=== PATIENT | male | born 1985 | race Caucasian/White ===

== ENCOUNTER 2017-02-25 19:14 | Emergency (ER) | payer OTHER ==
[2017-02-25 19:22] VITALS: BP 171/108; PULSE 114; TEMP 99.8; BMI 28.1
--- NOTE | 2017-02-25 19:30 | PDOC ---
History of Present Illness - General History Source: Patient Exam Limitations: No Limitations - History of Present Illness Initial Comments: 02/25/17 19:38 The patient is a 31 year old male with no significant past medical history, who presents to the ED with a fever, 1x diarrhea, generalized body aches, and lightheadedness that began this morning. Patient had a 102.6 fever this morning. Patient last had 3 extra strength Tylenol around 2 and a half hours prior to arrival. Patient denies headache, cough, sore throat, ear pain, chills, nausea, vomiting , hematochezia. He denies dysuria, frequency, hematochezia. Patient denies recent travels, sick contacts. PAST MEDICAL HISTORY: no significant history PAST SURGICAL HISTORY: no significant history FAMILY HISTORY: no pertinent history SOCIAL HISTORY: Pt lives with family and is employed. MEDICATIONS: reviewed ALLERGIES: As per nursing notes ROS General: + fever. + generalized body aches. No chill, no weight loss HEENT: No change in vision. No sore throat,. No ear pain CardioVascular: No chest pain or shortness of breath Respiratory:No cough, or wheezing. Gastrointestinal: + diarrhea. no nausea, vomiting, or constipation, No rectal bleeding Genitourinary: No dysuria, hematuria, or frequency Musculoskeletal: No joint or muscle pain or swelling Neurologic: + lightheadedness. No headache, vertigo, or loss of consciousness Psychiatric: nor depression Skin: No rashes or easy bruising Endocrine: no increased thirst or abnormal weight change Allergic: no skin or latex allergy All other systems reviewed and normal Exam: General: Well-nourished well-developed individual, no acute distress HEENT: Throat: Normal, tonsils normal, no erythema or exudate Neck: Supple, no meningeal signs, no lymphadenopathy Eyes:Pupils equal reactive and round, extraocular motion intact Chest: Nontender to palpation Cardiac: S1-S2 normal, regular rate and rhythm, no murmurs rubs or gallops Respiratory: Lungs clear to auscultation bilateral Abdomen: Soft, nondistended, normal bowel sounds, nontender to palpation diffusely Extremities: Warm, dry, no cyanosis, clubbing, or edema Skin: No rashes Neuro: Alert and oriented x3, nonfocal exam, grossly intact, normal gait Psych: Normal mood and affect <Rupert Kruger - Last Filed: 02/25/17 19:38> - General History Source: Patient Exam Limitations: No Limitations - History of Present Illness Initial Comments: 02/25/17 19:47 A portion of this note was documented by scribe services under my direction. I have reviewed the details of the note, within reason, and agree with the documentation. The case summary and management plan written by me. Assessment and plan: This is a 31-year-old male who comes in complaining of fever, body aches and no other symptoms. Patient has had symptoms for less than 24 hours. Patient took Tylenol prior to coming in and fever was 99.8 here in the emergency room. Patient otherwise had a normal exam. Patient denies any recent travel and any risk factors for tick bites. Patient was given Toradol here in the emergency room and reassured that this is most likely viral however was instructed that if the fever persists for more than 48 hours with no other symptoms that he should be reevaluated. <Kelvin Angulo I - Last Filed: 02/25/17 19:48> - General Chief Complaint: Pain, Acute Stated Complaint: FEVER/ BODY ACHES Time Seen by Provider: 02/25/17 19:22 Past History <Rupert Kruger - Last Filed: 02/25/17 19:38> - Past Medical History Suicide Attempt (Hx): No Other medical history: DENIES - Immunization History Immunization Up to Date: No - Psycho/Social/Smoking Cessation Hx Anxiety: No Suicidal Ideation: No Smoking History: Current every day smoker Have you smoked in the past 12 months: Yes Number of Cigarettes Smoked Daily: 10 Information on smoking cessation initiated: Yes 'Breaking Loose' booklet given: 02/25/17 Hx Alcohol Use: No Drug/Substance Use Hx: No Substance Use Type: Opiates <Kelvin Angulo I - Last Filed: 02/25/17 19:48> - Past Medical History Allergies/Adverse Reactions: Allergies Allergy/AdvReac Type Severity Reaction Status Date / Time No Known Allergies Allergy Verified 02/25/17 19:16 Home Medications: Ambulatory Orders NK [No Known Home Medication] 03/03/15 *Physical Exam - Vital Signs Last Vital Signs Temp Pulse Resp BP Pulse Ox 99.8 F H 114 H 16 171/108 98 02/25/17 19:18 02/25/17 19:18 02/25/17 19:18 02/25/17 19:18 02/25/17 19:18 <Rupert Kruger - Last Filed: 02/25/17 19:38> - Vital Signs Last Vital Signs Temp Pulse Resp BP Pulse Ox 99.8 F H 114 H 16 171/108 98 02/25/17 19:18 02/25/17 19:18 02/25/17 19:18 02/25/17 19:18 02/25/17 19:18 <Kelvin Angulo I - Last Filed: 02/25/17 19:48> *DC/Admit/Observation/Transfer - Attestations Scribe Attestion: 02/25/17 19:38 Documentation prepared by Rupert Kruger, acting as biomedical technician for Kelvin Angulo MD. <Rupert Kruger - Last Filed: 02/25/17 19:38> - Discharge Dispostion Admit: No <Kelvin Angulo I - Last Filed: 02/25/17 19:48> Diagnosis at time of Disposition: Viral illness Fever Qualifiers: Fever type: unspecified Qualified Code(s): R50.9 - Fever, unspecified - Discharge Dispostion Disposition: HOME Condition at time of disposition: Stable - Patient Instructions Additional Instructions: Alternate acetaminophen 2 tablets with ibuprofen 2 tablets every 3 hours for the next 24 hours to control the fever. After that you get*skipping a dose of either the ibuprofen or the acetaminophen to see if the fever is getting better. If you still have a fever in 3 days and no other symptoms he should be reevaluated either by your primary care doctor or return to the emergency room. Return to the emergency department immediately with ANY new, persistent or worsening symptoms. Continue any medications as previously prescribed by your physician. . Please make sure your doctor reviews the results of your emergency evaluation. Thank you for coming to the Emergency Department today for your care. It was a pleasure to see you today. Please note that your evaluation is INCOMPLETE until you follow-up with your doctor.
[2017-02-25] MEDS ORDERED: KETOROLAC TROMETHAMINE 60 MG/2 ML VIAL ONE (19:38)
[2017-02-25] MEDS ORDERED: KETOROLAC TROMETHAMINE 60 MG/2 ML VIAL IM ONE (19:38)
== END 2017-02-25 19:45 | disposition home or self-care (01) ==
LOC: FER 19:14
PROC: 3E0233Z Introduction of Anti-inflammatory into Muscle, Percutaneous Approach (ICD-10-PCS; principal; 2017-02-25)
DX: B34.9 Viral infection, unspecified (principal); R50.9 Fever, unspecified
CPT/HCPCS: 99281-25

== ENCOUNTER 2017-04-18 22:33 | Emergency (ER) | payer OTHER ==
--- NOTE | 2017-04-18 22:35 | PDOC ---
History of Present Illness - General Chief Complaint: Injury Stated Complaint: LT WRIST PAIN Time Seen by Provider: 04/18/17 22:35 History Source: Patient - History of Present Illness Initial Comments: 04/18/17 22:48 Pt presents to the ED complaining of a one month history of atraumatic L wrist pain. States that the pain began after "sleeping on it wrong" a month ago and has been persistent since then. Patient denies acute changes in his symptoms, but presents today because he has pain in his wrist when he tries to lift heavy objects and his work involves heavy lifting. Patient has not sought medical care for this problem. Pain is constant and 10/10 in severity as per the patient. 04/18/17 22:50 Past History - Past Medical History Allergies/Adverse Reactions: Allergies Allergy/AdvReac Type Severity Reaction Status Date / Time No Known Allergies Allergy Verified 02/25/17 19:16 Home Medications: Ambulatory Orders NK [No Known Home Medication] 03/03/15 - Immunization History Immunization Up to Date: No - Suicide/Smoking/Psychosocial Hx Smoking History: Current every day smoker Have you smoked in the past 12 months: Yes Number of Cigarettes Smoked Daily: 10 'Breaking Loose' booklet given: 02/25/17 Hx Alcohol Use: No Drug/Substance Use Hx: No Substance Use Type: Opiates Review of Systems - Review of Systems Able to Perform ROS?: Yes Is the patient limited Croatian proficient: No Constitutional: No: Symptoms Reported, See HPI, Chills, Diaphoresis, Fever, Loss of Appetite, Malaise, Night Sweats, Weakness, Weight Stable, Unintentional Wgt. Loss, Unexplained wgt Loss, Other Musculoskeletal: Yes: See HPI. No: Symptoms Reported, Back Pain, Gout, Joint Pain, Joint Swelling, Muscle Pain, Muscle Weakness, Neck Pain, Joint Stiffness, Other *Physical Exam - Physical Exam General Appearance: No: Nourished, Appropriately Dressed, Apparent Distress, Disheveled, Mild Distress, Moderate Distress, Severe Distress, Alcohol on Breath , Intoxicated, Cachetic, Obese, Thin, Other Extremity: positive: Normal Capillary Refill, Normal Inspection, Normal Range of Motion (L wrist has no tenderness or deformity. full ROM. Good optical element coater strength. ) Medical Decision Making - Medical Decision Making 04/18/17 22:52 Pt presents to the ED complaining of a month long history of L wrist pain. Patient is convinced that his wrist is fractured despite absence of trauma. Will check xray to rule out osteoscarcoma or other pathologic fracture which are unlikely given normal exam. 04/19/17 00:21 patient is hypertensive but asymptomatic. Will give urgent medical referral. *DC/Admit/Observation/Transfer Diagnosis at time of Disposition: Hypertension Qualifiers: Hypertension type: essential hypertension Qualified Code(s): I10 - Essential ( primary) hypertension; I10 - Essential (primary) hypertension; I10 - Essential ( primary) hypertension Strain of wrist Qualifiers: Encounter type: initial encounter Laterality: left Qualified Code(s): S66.912A - Strain of unspecified muscle, fascia and tendon at wrist and hand level, left hand, initial encounter; S66.912A - Strain of unspecified muscle, fascia and tendon at wrist and hand level, left hand, initial encounter - Discharge Dispostion Disposition: HOME Condition at time of disposition: Good Admit: No - Referrals Referrals: Nannette López MD [Staff Physician] - Vazquez Mena MD [Staff Physician] - - Patient Instructions Printed Discharge Instructions: DI for Wrist Pain Additional Instructions: Your blood pressure is high. You need to seek treatment by a primary care doctor urgently to avoid the risk of heart attack, blindness, kidney failure and stroke. I have prescribed a medication for your blood pressure, but you must still urgently seek treatment from a primary care doctor.
[2017-04-18 23:10] VITALS: PULSE 90; TEMP 97.9; BMI 28.1
[2017-04-18] MEDS ORDERED: IBUPROFEN 400 MG TABLET (FP) PO ONE ×2 (23:34→23:37)
[2017-04-18 23:41] VITALS: BP 183/146
== END 2017-04-19 00:31 | disposition home or self-care (01) ==
LOC: FER 22:33
DX: S66.912A Strain of unspecified muscle, fascia and tendon at wrist and hand level, left hand, initial encounter (principal); X58.XXXA Exposure to other specified factors, initial encounter; Y93.89 Activity, other specified; Y92.9 Unspecified place or not applicable; I10 Essential (primary) hypertension
CPT/HCPCS: 73110-TC-LT; 73130-TC-LT; 99281-25

== ENCOUNTER 2017-04-29 04:09 | Emergency (ER) | payer OTHER ==
[2017-04-29 04:22] VITALS: BP 150/113; PULSE 98; TEMP 98.4; BMI 26.6
--- NOTE | 2017-04-29 04:26 | PDOC ---
History of Present Illness - General Stated Complaint: left side face numbness Time Seen by Provider: 04/29/17 04:18 History Source: Patient Exam Limitations: No Limitations - History of Present Illness Initial Comments: 04/29/17 04:22 This is a 32-year-old male who has history of hypertension and was recently started on medication for hypertension and comes in with complaining of pain over the left TMJ area. Patient denies history of similar pain in the past. Patient said it woke him up he took 4 ibuprofen and admitted for evaluation. Here in the emergency room his blood pressure is better is 156 systolic. Patient denies any numbness or weakness on that side of the face. Patient denies any headache, change in vision, neck stiffness. Patient said that he has been under a lot of stress recently. PAST MEDICAL HISTORY: no significant history PAST SURGICAL HISTORY: no significant history FAMILY HISTORY: no pertinant history SOCIAL HISTORY: Pt lives with family and is employed. MEDICATIONS: reviewed ALLERGIES: As per nursing notes Review of Systems General: No fevers or chills, no weakness, no weight loss HEENT: No change in vision. No sore throat,. No ear pain, left-sided facial pain CardioVascular: No chest pain or shortness of breath Respiratory:No cough, or wheezing. Gastrointestinal: no nausea, vomitting, diarrhea or constipation, No rectal bleeding Genitourinary: No dysuria, hematuria, or frequency Musculoskeletal: No joint or muscle pain or swelling Neurologic: No headache, vertigo, dizziness or loss of consciousness Psychiatric: nor depression Skin: No rashes or easy bruising Endocrine: no increased thirst or abnormal weight change Allergic: no skin or latex allergy All other systems reviewed and normal Exam: General: Well-nourished well-developed individual, no acute distress HEENT: Throat: Normal, tonsils normal, no erythema or exudate, pain is reproduced with palpation over the left TMJ Neck: Supple, no meningeal signs, no lymphadenopathy Eyes::Pupils equal reactive and round, extraocular motion intact Chest: Nontender to palpation Cardiac: S1-S2 normal, regular rate and rhythm, no murmurs rubs or gallops Respiratory: Lungs clear to auscultation bilateral Abdomen: Soft, nondistended, normal bowel sounds, nontender to palpation diffusely Extremities: Warm, dry, no cyanosis, clubbing, or edema Skin: No rashes Neuro: Alert and oriented x3, nonfocal exam, grossly intact, normal gait Psych: Normal mood and affect This is a 32-year-old male with left facial pain over the left TMJ area. Patient took it on milligrams of ibuprofen just prior to coming in and is just starting to work now. Otherwise I would've given patient 60 mg of Toradol. 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 Told patient to follow-up with his dentist today if symptoms persisted and patient discharged home. Past History - Past Medical History Allergies/Adverse Reactions: Allergies Allergy/AdvReac Type Severity Reaction Status Date / Time No Known Allergies Allergy Verified 02/25/17 19:16 Home Medications: Ambulatory Orders Amlodipine Besylate [Norvasc -] 10 mg PO DAILY #30 tablet 04/19/17 - Immunization History Immunization Up to Date: No - Suicide/Smoking/Psychosocial Hx Smoking History: Current every day smoker Have you smoked in the past 12 months: Yes Number of Cigarettes Smoked Daily: 10 'Breaking Loose' booklet given: 02/25/17 Hx Alcohol Use: No Drug/Substance Use Hx: No Substance Use Type: Opiates *DC/Admit/Observation/Transfer Diagnosis at time of Disposition: Sprain of left temporomandibular joint Qualifiers: Encounter type: initial encounter Qualified Code(s): S03.42XA - Sprain of jaw, left side, initial encounter; S03.42XA - Sprain of jaw, left side, initial encounter - Discharge Dispostion Disposition: HOME Condition at time of disposition: Stable Admit: No - Patient Instructions Additional Instructions: For the pain you can take Aleve 2 tablets twice a day with food don't take on an empty stomach Otherwise continue any medication for high blood pressure. Return to the emergency department immediately with ANY new, persistent or worsening symptoms. Continue any medications as previously prescribed by your physician. You should follow up with your Dentist as soon as possible regarding today's emergency department visit. . Please make sure your doctor reviews the results of your emergency evaluation. Thank you for coming to the Emergency Department today for your care. It was a pleasure to see you today. Please note that your evaluation is INCOMPLETE until you follow-up with your doctor.
== END 2017-04-29 04:33 | disposition home or self-care (01) ==
LOC: FER 04:09
DX: S03.42XA Sprain of jaw, left side, initial encounter (principal); I10 Essential (primary) hypertension; F17.210 Nicotine dependence, cigarettes, uncomplicated; X58.XXXA Exposure to other specified factors, initial encounter; Y93.89 Activity, other specified; Y92.9 Unspecified place or not applicable
CPT/HCPCS: 99281-25

== ENCOUNTER 2020-04-26 16:29 | Emergency (ER) | payer OTHER ==
[2020-04-26 16:42] VITALS: PULSE 70; TEMP 98.5; BMI 27.8
--- NOTE | 2020-04-26 16:47 | PDOC ---
Rapid Medical Evaluation Chief Complaint: Blood Pressure Problem Time Seen by Provider: 04/26/20 16:43 Medical Evaluation: Allergies Allergy/AdvReac Type Severity Reaction Status Date / Time No Known Allergies Allergy Verified 04/26/20 16:37 Vital Signs Temp Pulse Resp BP Pulse Ox 98.5 F 70 18 193/140 H 100 04/26/20 16:38 04/26/20 16:38 04/26/20 16:38 04/26/20 16:38 04/26/20 16:38 04/26/20 16:44 35 year old male pmhx of HTN on duel therapy presenting from PCP for HTN urgency. 210/100 complaining of imtermittent SILVA and blurry vision. Denies CP SOB PE: CTA RRR Plan: EKG CXR CT head Lads Pt to precede to ED for further eval
[2020-04-26] MEDS ORDERED: NITROGLYCERIN SUBLINGUAL 1/150 0.4 MG TAB SL ONE (17:03)
--- OUTSIDE RECORDS SUMMARY | 2020-04-26 17:07 | XMS ---
:1985 Author Organization [facility] Support Name Relationship Address Phone UE Unavailable Unavailable Unavailable ADDY MCKAYLA SIGNIFICANT OTHER [address] [place] [address] BREA BURGER MOTHER [address] [place] [address] [place] [address] Re-disclosure Warning The records that you are about to access may contain information from federally- assisted alcohol or drug abuse programs. If such information is present, then the following federally mandated warning applies: This information has been disclosed to you from records protected by federal confidentiality rules (42 CFR part 2). The federal rules prohibit you from making any further disclosure of this information unless further disclosure is expressly permitted by the written consent of the person to whom it pertains or as otherwise permitted by 42 CFR part 2. A general authorization for the release of medical or other information is NOT sufficient for this purpose. The Federal rules restrict any use of the information to criminally investigate or prosecute any alcohol or drug abuse patient.The records that you are about to access may contain highly sensitive health information, the redisclosure of which is protected by Article 27-F of the [facility] Public Health law. If you continue you may haveaccess to information: Regarding HIV / AIDS; Provided by facilities licensed or operated by the [facility] Office of Mental Health; or Provided by the [facility] Office for People With Developmental Disabilities. If such information is present, then the following [facility] mandated warning applies: This information has been disclosed to you from confidential records which are protected by state law. State law prohibits you from making any further disclosure of this information without the specific written consent of the person to whom it pertains, or as otherwise permitted by law. Any unauthorized further disclosure in violation of state law may result in a fine or long term sentence or both. A general authorization for the release of medical or other information is NOT sufficient authorization for further disclosure. Insurance Providers Payer name Policy type Policy ID Covered Covered democrat's Policy P clive / Coverage democrat ID relationship to [facility] ormation type [facility] [id number] MEDICAID COMM PLAN Results ID Date Data Source [id number] 03/21/2020 05:04:00 PM EDT [facility] Name Value Range Interpretation Description Data Sup porting Code Source(s) Document(s ) SARS CoV-2 [facility] Interpretation This lab was ordered by [facility] and reported by [facility]. ID Date Data Source [id number] 03/21/2020 05:04:00 PM EDT [facility] Name Value Range Interpretation Code Description Data Melanie rce(s) Supporting Document(s ) 2019-nCoV [facility] RNA XXX CAR[place]+probe- Imp This lab was ordered by [facility] and reported by [facility]. Procedure
[2020-04-26] MEDS ORDERED: NITROGLYCERIN SUBLINGUAL 1/150 0.4 MG TAB ONE (17:34)
--- NOTE | 2020-04-26 17:59 | PDOC ---
History of Present Illness - General Chief Complaint: Blood Pressure Problem Stated Complaint: SENT BY PCP Time Seen by Provider: 04/26/20 16:43 - History of Present Illness Initial Comments: 04/26/20 17:48 35yo M with a PMHx HTN and headaches sent here by Dr. Alvarado from her office after pt reported a SILVA and dizziness at his first visit with her. His SBP was >200mmHg on both arms. He presents here reporting a 1/10 SILVA. He endorses intermittent severe SILVA that feel like "I got hit by a lightning bolt." He denies tinnitus, vision changes, and dark or bloody urine. He endorses palpitations and back pain at times. Denies fevers, rashes, recent illnesses. Past History - Medical History Allergies/Adverse Reactions: Allergies Allergy/AdvReac Type Severity Reaction Status Date / Time No Known Allergies Allergy Verified 04/26/20 16:37 Home Medications: Ambulatory Orders Amlodipine Besylate [Norvasc -] 10 mg PO DAILY #30 tablet 04/19/17 COPD: No HTN: Yes - Immunization History Immunization Up to Date: No - Psycho-Social/Smoking History Smoking History: Current every day smoker Have you smoked in the past 12 months: Yes Number of Cigarettes Smoked Daily: 20 If you are a former smoker, when did you quit?: 2 WEEKS AGO Information on smoking cessation initiated: Yes 'Breaking Loose' booklet given: 02/25/17 - Substance Abuse Hx (Audit-C & DAST Scrn) How often the patient has a drink containing alcohol: Never Score: In Men: 4 or > Positive; In Women: 3 or > Positive: 0 Screen Result (Pos requires Nsg. Audit-10AR): Negative In the last yr the pt used illegal drug/Rx for NonMed reason: Yes Score: Yes response is considered Positive: 1 Screen Result (Positive result requires Nsg. DAST-10): Positive Review of Systems - Review of Systems Able to Perform ROS?: Yes Is the patient limited Greenlandic proficient: No Constitutional: No: Chills, Diaphoresis, Fever HEENTM: No: Blurred Vision, Recent change in vision Respiratory: Yes: SOB with Exertion. No: Cough, Shortness of Breath, Wheezing Cardiac (ROS): Yes: Edema, Palpitations. No: Chest Pain, Chest Tightness ABD/GI: No: Constipated, Diarrhea, Nausea, Vomiting : No: Burning, Dysuria, Flank Pain, Hematuria Musculoskeletal: Yes: Back Pain. No: Muscle Weakness Integumentary: Yes: Symptoms Reported. No: Rash Neurological: Yes: Headache, Dizziness. No: Numbness, Paresthesia, Tingling, Weakness Psychiatric: Yes: Anxiety Endocrine: No: Symptoms Reported Hematologic/Lymphatic: No: Symptoms Reported All Other Systems: Reviewed and Negative *Physical Exam - Vital Signs Last Vital Signs Temp Pulse Resp BP Pulse Ox 98.5 F 70 18 193/140 H 100 04/26/20 16:38 04/26/20 16:38 04/26/20 16:38 04/26/20 16:38 04/26/20 16:38 - Physical Exam General Appearance: Yes: Nourished, Appropriately Dressed. No: Apparent Distress, Disheveled HEENT: positive: EOMI, SIOBHAN, Normal ENT Inspection, Normal Voice Neck: positive: Trachea midline, Supple. negative: Carotid bruit Cardiovascular: positive: Regular Rhythm, Regular Rate, S1, S2. negative: Gallop/S3, Gallop/S4 Gastrointestinal/Abdominal: positive: Normal Bowel Sounds, Soft Musculoskeletal: positive: Normal Inspection. negative: CVA Tenderness Extremity: positive: Normal Capillary Refill, Normal Inspection, Normal Range of Motion Integumentary: positive: Normal Color, Dry, Warm Neurologic: positive: cattle brander II-XII NML intact, Fully Oriented, Alert, Normal Mood/Affect, Normal Response, Motor Strength 5/5 ED Treatment Course - LABORATORY CBC & Chemistry Diagram: 04/26/20 17:38 04/26/20 17:38 Medical Decision Making - Medical Decision Making 04/26/20 18:01 35yo M w/ HTN sent here by PCP for SILVA and dizziness, now asymptomatic. CVA/bleed/TIA: normal neuro exam but mild SILVA labs = wnl CT scan = ? CXR = ? 04/26/20 19:16 Dr. Sweeney sent: to [address] Trazodone - 50mg daily x30d Carvedilol - 6.25mg daily x30d 04/26/20 19:20 04/26/20 20:16 CT negative. Carvedilol 1st dose given. BP now 160s/120s, down from 200s SBP. Will DC. Discharge - Discharge Information Problems reviewed: Yes Clinical Impression/Diagnosis: Hypertension Qualifiers: Hypertension type: unspecified Qualified Code(s): I10 - Essential (primary) hypertension Condition: Stable Disposition: HOME - Admission No - Follow up/Referral Referrals: Korey Alvarado MD [Primary Care Provider] - - Patient Discharge Instructions Patient Printed Discharge Instructions: DI for High Blood Pressure, How to Monitor Your Blood Pressure at Home Additional Instructions: You were seen in the ED for high blood pressure and a headache. We tested your blood, took an Xray and a CT scan, and we did a full physical e xam. We deemed you safe for discharge. Please follow up with Dr. Sweeney or Dr. Alvarado within 24hours of leaving the ED today. Dr. Sweeney sent two medications to the [facility] at [address] [place] [address]: 1. Trazodone 2. Carvedilol Please pick up worker these meds tomorrow and begin taking them immediately. Come back with any severe or worsening symptoms. - Post Discharge Activity
[2020-04-26 18:06] LABS: EOS % 3.1 % (0-4.5); HEMATOCRIT 47.7 % (35.4-49); HEMOGLOBIN 16.6 GM/dL (11.7-16.9); LYMPH % 26.1 % (8-40); MCH 29.4 pg (25.7-33.7); MCHC 34.7 g/dl (32.0-35.9); MEAN CELL VOLUME 84.6 fl (80-96); MEAN PLT VOLUME 8.2 fl (7.5-11.1); MONO % 10.4 % (3.8-10.2); NEUT % 59.4 % (42.8-82.8); PLATELET COUNT 269 K/MM3 (134-434); RBC 5.64 M/mm3 (4.00-5.60); RDW 12.9 % (11.9-15.9); WHITE BLOOD COUNT 11.7 K/mm3 (4.0-10.0)
[2020-04-26 18:12] LABS: INR 1.07 (0.83-1.09); PROTHROMBIN TIME (PATIENT) 12.6 SEC (9.7-13.0)
--- NOTE | 2020-04-26 18:14 | PDOC ---
Attending Attestation - Resident Resident Name: Best Beasley - ED Attending Attestation I have performed the following: I have examined & evaluated the patient, The case was reviewed & discussed with the resident, I agree w/resident's findings & plan - HPI HPI: 04/26/20 18:09 35-year-old male with history of hypertension noncompliant with medications last seen in [place] emergency department about 1 month ago in the setting of headache, labs and CT head were performed at that time and were within normal limits, he was prescribed Lopressor 50 mg which he has been taking intermittently. Today, patient went to his father's PCP office, Dr. Alvarado, because his blood pressure medications ran out. Upon evaluation, blood pressure was elevated and he was noted to have some mild headache so he was referred to the emergency department. Patient states he has chronic headaches, denies any change in pattern over the last 48 hours. Denies any vision change/speech change/nausea/vomiting/focal deficit, denies any exertional chest pain or dyspnea. - Physicial Exam PE: 04/26/20 18:10 Blood pressure elevated 190/140, otherwise afebrile with normal O2 sat Well-appearing lying comfortably in stretcher speaking full sentences Pupils equal round reactive to light, neck is supple No audible carotid bruits Heart is regular, lungs are clear. No audible murmur. Abdomen benign No edema or calf tenderness Neurological exam is normal - Medical Decision Making 04/26/20 18:11 35-year-old male with untreated hypertension presents with elevated blood pressure and chronic headache, no other red flags on history or physical exam today. Based on history and physical, no obvious signs of endorgan injury, will check work-up and reassess. Check labs, urinalysis EKG, head CT Blood pressure control Reevaluate. Discuss plan with Patel Prescott, who saw the patient in the office and prescribed him a new BP medication. if above wnl, seems would be candidate to initiate meds with expedited outpt follow-up. Heart Score/ECG Review #1 ECG reviewed & interpreted by me at: 16:47 General ECG Interpretation: Sinus Rhythm, Normal Rate (62), Normal Intervals (qtc 418, borderline LVH), No acute ischemic changes Discharge - Discharge Information Problems reviewed: Yes Clinical Impression/Diagnosis: Hypertension Qualifiers: Hypertension type: unspecified Qualified Code(s): I10 - Essential (primary) hypertension Condition: Stable - Follow up/Referral Referrals: Korey Alvarado MD [Primary Care Provider] - - Patient Discharge Instructions - Post Discharge Activity
[2020-04-26 18:31] LABS: ALBUMIN 4.4 g/dl (3.4-5.0); ALK PHOS 103 U/L (45-117); ANION GAP 7 MMOL/L (8-16); BILIRUBIN,TOTAL 0.5 mg/dL (0.2-1); BLOOD UREA NITROGEN 16.8 mg/dL (7-18); CALCIUM 9.9 mg/dL (8.5-10.1); CHLORIDE 108 mmol/L (98-107); CO2 26 mmol/L (21-32); CREATININE 1.1 mg/dL (0.55-1.3); GLUCOSE,RANDOM 87 mg/dL (74-106); POTASSIUM 3.9 mmol/L (3.5-5.1); SGOT/AST 13 U/L (15-37); SGPT/ALT 33 U/L (13-61); SODIUM 141 mmol/L (136-145); TOT PROT 7.8 g/dl (6.4-8.2)
[2020-04-26 19:27] VITALS: BP 186/128
[2020-04-26] MEDS ORDERED: CARVEDILOL 6.25 MG TABLET (FP) PO ONE (19:29)
[2020-04-26] MEDS ORDERED: CARVEDILOL 3.125 MG TABLET (FP) ONE (19:32)
--- NOTE | 2020-04-28 13:37 | EKG ---
Test Reason : Blood Pressure : / mmHG Vent. Rate : 062 BPM Atrial Rate : 062 BPM P-R Int : 150 ms QRS Dur : 084 ms QT Int : 412 ms P-R-T Axes : 043 040 025 degrees QTc Int : 418 ms NORMAL SINUS RHYTHM WITH SINUS ARRHYTHMIA POSSIBLE LEFT ATRIAL ENLARGEMENT BORDERLINE ECG NO PREVIOUS ECGS AVAILABLE Confirmed by ELICEO JAMISON, CARLOS ([id number]) on 04/28/2020 1:36:34 PM Referred By: Confirmed By:CARLOS FENTON MD
== END 2020-04-26 20:26 | disposition home or self-care (01) ==
LOC: JER 16:29
DX: I10 Essential (primary) hypertension (principal)
CPT/HCPCS: 36415; 70450-TC; 71046-TC-FY; 80053; 82550; 83880; 84484; 85025; 85610; 93005; 93010; 99285-25

== ENCOUNTER 2020-11-18 16:07 | Emergency (ER) | payer OTHER ==
[2020-11-18 16:22] VITALS: PULSE 64; TEMP 98.3; BMI 26.6
[2020-11-18] MEDS ORDERED: METOCLOPRAMIDE HCL INJECTION 10 MG/2 ML VIAL IVPB ONE (16:48)
[2020-11-18] MEDS ORDERED: ACETAMINOPHEN 1000 MG/100 ML VIAL (NON FORMULARY) IVPB ONE (16:49)
[2020-11-18] MEDS ORDERED: ACETAMINOPHEN INJECTION 100 ML IVPB ONE (16:55)
[2020-11-18] MEDS ORDERED: METOCLOPRAMIDE HCL INJECTION 10 MG/2 ML VIAL ONE (16:56)
[2020-11-18 17:06] LABS: BASO % 1.7 % (0-2.0); EOS % 1.8 % (0-4.5); HEMATOCRIT 47.8 % (35.4-49); HEMOGLOBIN 16.3 GM/dl (11.7-16.9); LYMPH % 22.8 % (8-40); MCH 29.4 pg (25.7-33.7); MEAN CELL VOLUME 86.4 fl (80-96); MEAN PLT VOLUME 8.5 fl (7.5-11.1); MONO % 8.8 % (3.8-10.2); NEUT % 64.9 % (42.8-82.8); PLATELET COUNT 265 K/MM3 (134-434); RBC 5.53 M/mm3 (4.00-5.60); RDW 12.2 % (11.9-15.9); WHITE BLOOD COUNT 10.7 K/mm3 (4.0-10.8)
[2020-11-18 17:36] LABS: ALBUMIN 4.5 g/dl (3.4-5.0); BILIRUBIN,TOTAL 1.4 mg/dl (0.2-1); CALCIUM 9.8 mg/dl (8.5-10); CREATININE 1.2 mg/dl (0.55-1.3); TOT PROT 7.3 g/dl (6.4-8.2)
[2020-11-18] MEDS ORDERED: CARVEDILOL 6.25 MG TABLET (FP) PO ONE (17:55)
[2020-11-18 18:02] VITALS: BP 169/115
[2020-11-18 18:43] LABS: EPITHELIAL CELLS RARE /hpf
[2020-11-18] MEDS ORDERED: KETOROLAC TROMETHAMINE 30 MG/1 ML VIAL ONE (19:18)
[2020-11-18] MEDS ORDERED: KETOROLAC TROMETHAMINE 30 MG/1 ML VIAL IM ONE (19:18)
== END 2020-11-18 19:24 | disposition left against medical advice (07) ==
LOC: FER 16:07
PROC: 3E0333Z Introduction of Anti-inflammatory into Peripheral Vein, Percutaneous Approach (ICD-10-PCS; principal; 2020-11-18)
PROC: 3E033GC Introduction of Other Therapeutic Substance into Peripheral Vein, Percutaneous Approach (ICD-10-PCS; 2020-11-18)
DX: R51.9 Headache, unspecified (principal); I10 Essential (primary) hypertension
CPT/HCPCS: 36415; 70450-TC; 80053; 81003; 81015; 85025; 99285-25; J0131

== ENCOUNTER 2020-11-21 12:05 | Inpatient (IN) | payer OTHER ==
[2020-11-21 12:57] LABS: BASO % 1.5 % (0-2.0); EOS % 3.6 % (0-4.5); HEMOGLOBIN 16.4 GM/dl (11.7-16.9); LYMPH % 26.4 % (8-40); MCH 29.8 pg (25.7-33.7); MCHC 34.1 g/dl (32.0-35.9); MEAN CELL VOLUME 87.2 fl (80-96); MEAN PLT VOLUME 8.4 fl (7.5-11.1); NEUT % 54.5 % (42.8-82.8); PLATELET COUNT 280 K/MM3 (134-434); RDW 12.6 % (11.9-15.9); WHITE BLOOD COUNT 9.4 K/mm3 (4.0-10.8)
[2020-11-21 13:20] LABS: ALBUMIN 4.6 g/dl (3.4-5.0); ALK PHOS 90 U/L (45-117); ANION GAP 8 MMOL/L (8-16); BILIRUBIN,TOTAL 1.1 mg/dl (0.2-1); CALCIUM 9.4 mg/dl (8.5-10); CHLORIDE 102 mmol/L (98-107); CO2 28 mmol/L (21-32); CREATININE 1.2 mg/dl (0.55-1.3); GLUCOSE,RANDOM 76 mg/dl (74-106); SGOT/AST 19 U/L (15-37); SGPT/ALT 36 U/L (13-61); SODIUM 138 mmol/L (136-145); TOT PROT 7.5 g/dl (6.4-8.2)
[2020-11-21] MEDS ORDERED: ENALAPRILAT DIHYDRATE 1.25 MG/1 ML VIAL IVPB ONE (17:43)
[2020-11-21] MEDS ORDERED: ENALAPRILAT DIHYDRATE 2.5 MG/2 ML VIAL IVPB ONE (17:47)
[2020-11-21] MEDS ORDERED: ACETAMINOPHEN 325 MG TABLET (FP) PO PRN (17:53)
[2020-11-21 18:20] VITALS: BMI 28.6
[2020-11-21] MEDS ORDERED: CARVEDILOL 6.25 MG TABLET (FP) PO ONE (18:56)
[2020-11-21] MEDS: hydrALAZINE HCL 20 MG/ML VIAL IVPUSH PRN (19:05)
[2020-11-21] MEDS ORDERED: CARVEDILOL 6.25 MG TABLET (FP) PO SCH ×2 (22:00)
[2020-11-22] MEDS ORDERED: MELATONIN 5 MG TABLETS PO PRN (05:26)
[2020-11-22 08:27] LABS: BASO % 0.9 % (0-2.0); EOS % 2.7 % (0-4.5); HEMATOCRIT 46.9 % (35.4-49); HEMOGLOBIN 16.7 GM/dL (11.7-16.9); LYMPH % 22.8 % (8-40); MCH 29.9 pg (25.7-33.7); MCHC 35.7 g/dl (32.0-35.9); MEAN CELL VOLUME 83.7 fl (80-96); MEAN PLT VOLUME 8.6 fl (7.5-11.1); MONO % 10.2 % (3.8-10.2); NEUT % 63.4 % (42.8-82.8); PLATELET COUNT 275 K/MM3 (134-434); RDW 13.2 % (11.9-15.9); WHITE BLOOD COUNT 11.3 K/mm3 (4.0-10.0)
[2020-11-22 08:39] LABS: CHLORIDE 107 mmol/L (98-107); SODIUM 139 mmol/L (136-145)
[2020-11-22 08:42] LABS: ANION GAP 8 MMOL/L (8-16); CALCIUM 9.4 mg/dL (8.5-10.1); CO2 24 mmol/L (21-32)
[2020-11-22 08:43] LABS: ALBUMIN 4.4 g/dl (3.4-5.0); BLOOD UREA NITROGEN 19.1 mg/dL (7-18)
[2020-11-22 08:45] LABS: CHOLESTEROL 204 mg/dL (50-200); CREATININE 1.2 mg/dL (0.55-1.3); GLUCOSE,RANDOM 80 mg/dL (74-106); SGOT/AST 14 U/L (15-37); SGPT/ALT 42 U/L (13-61)
[2020-11-22 08:46] LABS: LDL CHOLESTEROL (ONLY SJRH) 130 mg/dL (5-100); MAGNESIUM 2.2 mg/dL (1.8-2.4); TRIGLYCERIDES 129 mg/dL (0-150)
[2020-11-22 08:47] LABS: BILIRUBIN,TOTAL 1.2 mg/dL (0.2-1); TOT PROT 7.6 g/dl (6.4-8.2)
[2020-11-22 08:48] LABS: ALK PHOS 118 U/L (45-117); HDL CHOLESTEROL 40 mg/dL (40-60)
[2020-11-22] MEDS: ENOXAPARIN NA (PORCINE) 40 MG/0.4 ML DISP.SYRIN SQ SCH (09:33)
[2020-11-22] MEDS ORDERED: CARVEDILOL 6.25 MG TABLET (FP) PO SCH ×2 (10:00→22:00)
[2020-11-22] MEDS ORDERED: CARVEDILOL 6.25 MG TABLET (FP) PO ONE (10:57)
[2020-11-22] MEDS ORDERED: ACETAMINOPHEN 325 MG TABLET (FP) PO PRN (10:58)
[2020-11-22] MEDS ORDERED: busPIRone HCL 10 MG TABLET (FP) PO PRN (11:01)
[2020-11-22] MEDS ORDERED: ATORVASTATIN CA 10 MG TABLET (FP) PO SCH (22:00)
[2020-11-23] MEDS: ENOXAPARIN NA (PORCINE) 40 MG/0.4 ML DISP.SYRIN SQ SCH (09:39)
[2020-11-23] MEDS: hydrALAZINE HCL 20 MG/ML VIAL IVPUSH PRN (09:40)
[2020-11-23] MEDS ORDERED: LOSARTAN 50MG/HCTZ 12.5MG 1 TAB PO SCH (10:00)
[2020-11-23] MEDS ORDERED: amLODIPine BESYLATE 5 MG TABLET (FP) PO SCH (10:00)
[2020-11-23 14:51] VITALS: BP 135/79; PULSE 111; TEMP 98
== END 2020-11-23 18:14 | disposition home or self-care (01) | DRG 199 ==
LOC: FER 12:05 → FM/S 16:16 → INTOOBSV 16:16 → OBSVTOIN 19:27 → J4W 22:24
PROVIDERS: ADMIT Internal Medicine; ATTEND Family Medicine
DX: I16.1 Hypertensive emergency (principal); F41.8 Other specified anxiety disorders; H53.8 Other visual disturbances; F17.210 Nicotine dependence, cigarettes, uncomplicated; R00.1 Bradycardia, unspecified; Z91.14 Patient's other noncompliance with medication regimen; I16.0 Hypertensive urgency
CPT/HCPCS: 36415; 70551-TC; 71045-TC-FY; 80053; 80061; 83036; 83721; 83735; 84443; 84484; 85025; 93005; 93306-TC; 99285-25; C9803; G0378; U0003; U0005